=== PATIENT | male | born 1965 | race Caucasian/White ===

== ENCOUNTER 2019-04-19 05:19 | Emergency (ER) | payer MEDICAID ==
[~2019-04-19] VITALS: Ht 182.9 cm; Wt 90.7 kg
[2019-04-19 05:21] VITALS: BP 142/93
--- NOTE | 2019-04-19 05:24 | NUR ---
PT TAKEN TO BED 1
[2019-04-19] MEDS ORDERED: NACL 0.9% 1,000 ML IV SCH (05:28)
[2019-04-19] MEDS ORDERED: VANCOMYCIN 1,000 MG in DEXTROSE 5% 250 ML IV ONE (05:30)
--- NOTE | 2019-04-19 05:30 | NUR ---
53/M PRESENTED TO ED. C/O OPEN WOUNDS TO BILATERAL LOWER LEGS. WEEPING SEROSANGUINEOUS AND YELLOW/BROWN EXUDATE. OPEN 6" DISTAL TO KNEE. WOUNDS CIRCUMFRENTIAL. PT STATES WORSE OVER PAST "SEVERAL" WEEKS. STATES 6/10 PAIN. NO FEVER. STATES "THESE WOUNDS HAVE BEEN THERE FOR YEARS". PAST MED HX PT DOES NOT REMEMBER. RX ALBUTEROL. DENIES ALLERGIES. WILL CONTINUE TO MONITOR.
[2019-04-19] MEDS ORDERED: VANCOMYCIN 1,000 MG VIAL ONE (05:47)
[2019-04-19 06:15] LABS: BASOPHILS # (AUTO) 0.1 K/uL (0.00-0.22); EOSINOPHILS # (AUTO) 0.1 K/uL (0-0.4); HEMATOCRIT 33.3 % (36-52); HEMOGLOBIN 11.1 g/dL (12.0-18.0); LYMPHOCYTES % (AUTO) 25.5 % (20.5-51.1); MEAN CORPUSCULAR HEMOGLOBIN 27 pg (27-31); MEAN CORPUSCULAR HGB CONC 33 g/dL (33-37); MEAN CORPUSCULAR VOLUME 79.8 fL (80-94); MONOCYTES # (AUTO) 1.3 K/uL (0.8-1.0); NEUTROPHILS # (AUTO) 7.3 K/uL (1.8-7.7); NEUTROPHILS % (AUTO) 61.5 % (42.2-75.2); PLATELET COUNT (AUTO) 793 K/uL (140-450); RED BLOOD CELL COUNT(AUTO) 4.18 MIL/uL (4.20-6.10); RED CELL DISTRIBUTION WIDTH 16.3 % (11.6-13.7); WHITE BLOOD COUNT (AUTO) 11.8 K/uL (4.8-10.8)
[2019-04-19 06:35] LABS: ANION GAP 15.5 (8-16); CARBON DIOXIDE 25.5 mmol/L (21-32); CREATININE 0.9 mg/dL (0.7-1.3)
--- NOTE | 2019-04-19 07:09 | NUR ---
RECEIVED REPORT FROM ANDREA LOZANO.
--- NOTE | 2019-04-19 07:09 | NUR ---
BEDSIDE REPORT GIVEN TO VALERIE LOZANO. PT IN STABLE CONDITION.
--- NOTE | 2019-04-19 07:38 | NUR ---
O2 SAT 100%. ROOM AIR. NO NEED O2
[2019-04-19 08:17] LABS: APPEARANCE,URINE CLEAR (CLEAR); BILIRUBIN,URINE NEGATIVE (NEGATIVE); BLOOD, URINE NEGATIVE (NEGATIVE); COLOR,URINE YELLOW (YELLOW); LEUKOCYTE ESTERASE ,URINE NEGATIVE (NEGATIVE); NITRITE, URINE NEGATIVE (NEGATIVE); PH,URINE 7.5 (5.0-9.0); UGLUCOSE NEGATIVE (NEGATIVE)
--- NOTE | 2019-04-19 08:27 | NUR ---
SPOKE TO VENU ;RECEIVING TELLER INSURRANCE FOR PATIENT'S INFORMATION.
[2019-04-19 09:30] VITALS: BP 143/89
--- NOTE | 2019-04-19 09:30 | NUR ---
Patient does not wish to proceed with medical care recommended by DR SALGUERO . Patient given information related to possible complications, up to and including , which could occur as a result of leaving hospital at this time. Patient verbalizes understanding of risks involved leaving against medical advice. Patient has signed AMA form. Addendum: 04/19/19 at 0930 by [facility] PROVIDED [employer] DOCUMENT.
== END 2019-04-19 09:30 | disposition left against medical advice (07) ==
LOC: MED 05:19
DX: L03.116 Cellulitis of left lower limb (principal); L03.115 Cellulitis of right lower limb
CPT/HCPCS: 36415; 73590; 80048; 81003; 83605; 85025; 85651; 86140; 87040; 96365; 96366; 99284; J3370; J7030; Q0092